=== PATIENT | male | born 1980 | race Caucasian/White ===

== ENCOUNTER 2019-12-31 07:37 | Inpatient (IN) | payer OTHER ==
[~2019-12-31] VITALS: Ht 175.3 cm; Wt 86.2 kg
[2019-12-31 07:56] VITALS: BP 116/75
[2019-12-31 14:18] VITALS: BP 125/84
[2019-12-31 16:46] VITALS: BP 120/78
[2019-12-31 20:40] VITALS: BP 109/73
[2020-01-01 00:35] VITALS: BP 112/71
[2020-01-01 05:40] VITALS: BP 106/69
[2020-01-01 06:43] LABS: BASOPHIL % 0.2 % (0-2); PLATELET COUNT 265 x10^3mcL (130-400); RED CELL DISTRIBUTION WIDTH 14.1 % (11.5-14.5)
[2020-01-01 06:53] LABS: C REACTIVE PROTEIN 3.7 mg/dL (<=0.9); CALCIUM 8.3 mg/dL (8.5-10.1); CARBON DIOXIDE 26.5 mmol/L (21-32); CHLORIDE SERUM 101 mmol/L (98-107); CREATININE SERUM 0.9 mg/dL (0.7-1.3); GFR1 > 60 mL/min; GLUCOSE SERUM 99 mg/dL (74-106); POTASSIUM SERUM 4.2 mmol/L (3.5-5.1); SODIUM SERUM 136 mmol/L (136-145)
[2020-01-01 07:52] VITALS: BP 121/81
[2020-01-01 16:38] VITALS: BP 110/79
[2020-01-01 20:50] VITALS: BP 116/79
[2020-01-02 05:25] VITALS: BP 105/71
[2020-01-02 07:01] LABS: C REACTIVE PROTEIN 6.1 mg/dL (<=0.9); CALCIUM 8.2 mg/dL (8.5-10.1); CARBON DIOXIDE 26.4 mmol/L (21-32); CHLORIDE SERUM 100 mmol/L (98-107); CREATININE SERUM 0.8 mg/dL (0.7-1.3); GFR1 > 60 mL/min; GLUCOSE SERUM 91 mg/dL (74-106); SODIUM SERUM 135 mmol/L (136-145)
[2020-01-02 07:58] LABS: BASOPHIL % 0.5 % (0-2); PLATELET COUNT 238 x10^3mcL (130-400); RED CELL DISTRIBUTION WIDTH 14.2 % (11.5-14.5)
[2020-01-02 08:32] VITALS: BP 118/72
[2020-01-02 12:40] VITALS: BP 108/74
[2020-01-02 18:50] VITALS: BP 108/74
== END 2020-01-02 19:53 | disposition home or self-care (01) | DRG 223 ==
LOC: MU 07:37 → DU 07:37 → MU 08:00 → DU 14:16 → MU 01-01 15:50
PROVIDERS: Urology; ADMIT Surgery; ATTEND Surgery
PROC: 0T788DZ Dilation of Bilateral Ureters with Intraluminal Device, Via Natural or Artificial Opening Endoscopic (ICD-10-PCS; 2019-12-31)
PROC: BT141ZZ Fluoroscopy of Kidneys, Ureters and Bladder using Low Osmolar Contrast (ICD-10-PCS; principal; 2019-12-31 08:00)
PROC: 0DSM0ZZ Reposition Descending Colon, Open Approach (ICD-10-PCS; 2019-12-31 08:00)
DX: K94.03 Colostomy malfunction (principal); K57.92 Diverticulitis of intestine, part unspecified, without perforation or abscess without bleeding; Y83.8 Other surgical procedures as the cause of abnormal reaction of the patient, or of later complication, without mention of misadventure at the time of the procedure
CPT/HCPCS: 94150; C1758; G0378; J0690; J1170; J1650; J1885; J2001; J2175; J2405; J3010; J3490; Q9967; U0003-CS